=== PATIENT | male | born 1950 | race Two or more races ===

== ENCOUNTER → 2017-12-17 | Outpatient (CLI) | payer OTHER | END | disposition home or self-care (01) | LOC: RAD 501 09:36 | DX: J44.9 Chronic obstructive pulmonary disease, unspecified (principal) ==

== ENCOUNTER 2018-01-11 10:01 | Outpatient (CLI) | payer OTHER | END 2018-01-11 15:37 | disposition home or self-care (01) | LOC: TOM 10:01 | DX: R31.0 Gross hematuria (principal) ==

== ENCOUNTER 2018-04-06 07:54 | Outpatient (CLI) | payer OTHER | END 2018-04-06 08:01 | disposition home or self-care (01) | LOC: LAB 07:54 | DX: C64.1 Malignant neoplasm of right kidney, except renal pelvis (principal); E11.9 Type 2 diabetes mellitus without complications; D68.8 Other specified coagulation defects ==

== ENCOUNTER 2018-04-08 09:48 | Outpatient (CLI) | payer OTHER | END 2018-04-08 09:59 | disposition home or self-care (01) | LOC: RAD 09:48 | DX: J43.8 Other emphysema (principal) ==

== ENCOUNTER 2018-04-09 15:17 | Outpatient (CLI) | payer OTHER | END 2018-04-09 15:18 | disposition home or self-care (01) | LOC: T RESPIRAT 15:17 | DX: J43.1 Panlobular emphysema (principal) ==

== ENCOUNTER 2018-04-19 09:00 | Inpatient (IN) | payer OTHER ==
[~2018-04-19] VITALS: Ht 180.3 cm; Wt 97.5 kg
[2018-04-19] MEDS ORDERED: METROPOL PO (09:37)
[2018-04-19] MEDS ORDERED: FORTAMET1000 MG PO (09:37)
[2018-04-19] MEDS ORDERED: FENOFIBRATE160 MG PO (09:38)
[2018-04-19] MEDS ORDERED: ZOCOR PO (09:38)
[2018-04-19] MEDS ORDERED: COZAAR100 MG PO (09:38)
[2018-04-19] MEDS ORDERED: GLIMEPIRIDE PO (09:39)
[2018-04-19] MEDS ORDERED: QUETIAPINE FUM100 MG PO (09:39)
[2018-04-19] MEDS ORDERED: BENZTROPINE MESY2 MG PO (09:40)
[2018-04-19] MEDS ORDERED: HALOPERIDOL5 MG/1 ML IJ (09:40)
[2018-04-30] MEDS ORDERED: SIMVASTATIN10 MG PO (08:55)
[2018-04-30] MEDS ORDERED: TOPROL XL50 MG PO (09:03)
[2018-04-30] MEDS ORDERED: GLIMEPIRIDE4 MG PO (09:06)
== END 2018-05-01 09:51 | disposition home or self-care (01) | DRG 658 ==
LOC: SURH 04-29 05:50 → O/R 04-29 05:50 → SURH 04-29 13:10
PROVIDERS: Urology
PROC: 0GT34ZZ Resection of Right Adrenal Gland, Percutaneous Endoscopic Approach (ICD-10-PCS; 2018-04-29)
PROC: 0TT64ZZ Resection of Right Ureter, Percutaneous Endoscopic Approach (ICD-10-PCS; 2018-04-29)
PROC: 0TT04ZZ Resection of Right Kidney, Percutaneous Endoscopic Approach (ICD-10-PCS; principal; 2018-04-29 07:00)
DX: C64.1 Malignant neoplasm of right kidney, except renal pelvis (principal)

== ENCOUNTER 2018-05-03 17:13 | Emergency (ER) | payer OTHER ==
[~2018-05-03] VITALS: Ht 180.3 cm; Wt 97.5 kg
[~2018-05-03 17:13] MED LIST: BENZTROPINE MESY2 MG PO; COZAAR100 MG PO; FENOFIBRATE160 MG PO; FORTAMET1000 MG PO; GLIMEPIRIDE PO; GLIMEPIRIDE4 MG PO; HALOPERIDOL5 MG/1 ML IJ; METROPOL PO; QUETIAPINE FUM100 MG PO; SIMVASTATIN10 MG PO; TOPROL XL50 MG PO; ZOCOR PO
== END 2018-05-03 22:48 | disposition home or self-care (01) ==
LOC: ER 17:13
DX: E11.649 Type 2 diabetes mellitus with hypoglycemia without coma (principal)

== ENCOUNTER 2018-11-20 08:15 | Outpatient (CLI) | payer OTHER | END 2018-11-20 08:20 | disposition home or self-care (01) | LOC: LAB 08:15 | DX: R97.21 Rising PSA following treatment for malignant neoplasm of prostate (principal) ==

== ENCOUNTER 2018-11-22 09:19 | Outpatient (CLI) | payer OTHER | END 2018-11-22 09:28 | disposition home or self-care (01) | LOC: SONOGRAMA 09:19 | DX: R97.20 Elevated prostate specific antigen [PSA] (principal); C64.1 Malignant neoplasm of right kidney, except renal pelvis ==

== ENCOUNTER 2021-11-22 10:39 | Outpatient (CLI) | payer OTHER | END 2021-11-22 10:45 | disposition home or self-care (01) | LOC: RAD 10:39 | PROVIDERS: ATTEND General Practice | DX: J44.0 Chronic obstructive pulmonary disease with (acute) lower respiratory infection (principal) ==

== ENCOUNTER 2022-08-25 08:18 | Outpatient (CLI) | payer OTHER | END 2022-08-25 08:19 | disposition home or self-care (01) | LOC: SONOGRAMA 08:18 | PROVIDERS: ATTEND Urology | DX: R97.20 Elevated prostate specific antigen [PSA] (principal); C64.1 Malignant neoplasm of right kidney, except renal pelvis ==

== ENCOUNTER 2023-06-22 08:05 | Outpatient (CLI) | payer OTHER | END 2023-06-22 08:12 | disposition home or self-care (01) | LOC: TOM 08:05 | PROVIDERS: ATTEND Urology | DX: C64.1 Malignant neoplasm of right kidney, except renal pelvis (principal); R97.20 Elevated prostate specific antigen [PSA]; N39.0 Urinary tract infection, site not specified ==

== ENCOUNTER 2023-07-03 13:40 | Outpatient (CLI) | payer OTHER | END 2023-07-03 13:42 | disposition home or self-care (01) | LOC: LAB 13:40 | PROVIDERS: ATTEND Urology | DX: N39.0 Urinary tract infection, site not specified (principal); Z88.0 Allergy status to penicillin ==

== ENCOUNTER 2023-07-23 09:51 | Outpatient (CLI) | payer OTHER | END 2023-07-23 09:57 | disposition home or self-care (01) | LOC: RAD 09:51 | PROVIDERS: ATTEND Urology | DX: R33.9 Retention of urine, unspecified (principal); N18.9 Chronic kidney disease, unspecified ==

== ENCOUNTER 2023-07-26 09:39 | Outpatient (CLI) | payer OTHER | END 2023-07-26 09:40 | disposition home or self-care (01) | LOC: EKG 09:39 | PROVIDERS: ATTEND Urology | DX: Z01.810 Encounter for preprocedural cardiovascular examination (principal) ==

== ENCOUNTER 2023-08-08 06:21 | Day surgery (SDC) | payer OTHER ==
[~2023-08-08 06:21] MED LIST changes: +COZAAR50 MG PO; +FINASTERIDE5 MG PO; +LUMIGAN2.5 M1 OP; +SIMVASTA PO; +TAMS0.4C PO
== END 2023-08-08 16:45 | disposition home or self-care (01) ==
LOC: CIR.AMB 06:21
PROVIDERS: ATTEND Urology
DX: N40.0 Benign prostatic hyperplasia without lower urinary tract symptoms (principal); R33.9 Retention of urine, unspecified; R97.20 Elevated prostate specific antigen [PSA]; N39.0 Urinary tract infection, site not specified; Z88.0 Allergy status to penicillin; Z20.822 Contact with and (suspected) exposure to COVID-19

== ENCOUNTER 2023-08-10 06:43 | Emergency (ER) | payer OTHER ==
[~2023-08-10] VITALS: Ht 180.3 cm; Wt 72.6 kg
== END 2023-08-10 10:36 | disposition home or self-care (01) ==
LOC: ER 06:43
DX: R31.9 Hematuria, unspecified (principal); Z48.816 Encounter for surgical aftercare following surgery on the genitourinary system; Z88.0 Allergy status to penicillin
CPT/HCPCS: 36415; 96365; 99282; J0744

== ENCOUNTER 2023-08-13 06:43 | Outpatient (CLI) | payer OTHER ==
[2023-08-13 07:21] LABS: MEAN CELL VOLUME 84.7 fL (80.0-100.00); MEAN CORPUSCULAR HGB CONC 35.2 g/dl (32.0-36.0); PLATELET COUNT 132 K/uL (150-450); RED BLOOD COUNT 2.54 M/uL (4.00-6.00); RED CELL DISTRIBUTION WIDTH 14.3 % (11.5-14.5)
[2023-08-13 07:37] LABS: CALCIUM 8.9 mg/dL (8.5-10.1); CREATININE SERUM 2.6 mg/dL (0.70-1.30); GFR 24.32; POTASSIUM 4.33 mEq/L (3.5-5.1)
[2023-08-13 07:59] LABS: MEAN CORPUSCULAR HEMOGLOBIN 29.9 pg (27.00-32.0)
[2023-08-13 08:00] LABS: HEMATOCRIT 21.5 % (39.0-48.0); HEMOGLOBIN 7.6 g/dL (13-16.00)
[2023-08-13] MEDS ORDERED: HALOPERIDOL5 MG PO (10:07)
== END 2023-08-13 06:45 | disposition home or self-care (01) ==
LOC: LAB 06:43
PROVIDERS: ATTEND Urology
DX: D62 Acute posthemorrhagic anemia (principal)

== ENCOUNTER 2023-08-13 09:34 | Inpatient (IN) | payer OTHER ==
[~2023-08-13] VITALS: Ht 180.3 cm; Wt 72.6 kg
[2023-08-13] MEDS ORDERED: HALOPERIDOL5 MG PO (10:07)
[2023-08-13 11:09] LABS: MEAN CORPUSCULAR HGB CONC 33.4 g/dl (32.0-36.0); PLATELET COUNT 130 K/uL (150-450); RED BLOOD COUNT 2.45 M/uL (4.00-6.00); RED CELL DISTRIBUTION WIDTH 13.8 % (11.5-14.5)
[2023-08-13 11:20] LABS: HEMATOCRIT 21.3 % (39.0-48.0); HEMOGLOBIN 7.1 g/dL (13-16.00); MEAN CORPUSCULAR HEMOGLOBIN 28.9 pg (27.00-32.0)
[2023-08-13 11:43] LABS: INR 1.03; PARTIAL THROMBOPLASTIN TIME 24.1 SECONDS (22.0-34.0); PROTHROMBIN TIME 10.8 SECONDS (9.0-11.5)
[2023-08-13 11:47] LABS: CALCIUM 8.7 mg/dL (8.5-10.1); CREATININE SERUM 2.57 mg/dL (0.70-1.30); GFR 24.64; POTASSIUM 4.93 mEq/L (3.5-5.1)
[2023-08-13 13:43] LABS: PH,URINE 5.5 (5.0-8.0); URINE APPEARANCE Cloudy; URINE BILIRRUBIN Negative (NEGATIVE); URINE BLOOD Large; URINE COLOR Orange; URINE GLUCOSE Negative (NEGATIVE); URINE LEUKOCYTE Moderate; URINE NITRATE Negative; URINE UROBILINOGEN 0.2 E.U./dl
[2023-08-13 13:46] LABS: URINE BACTERIA 248.2 uL (0.0-1933); URINE EPITHELIAL CELLS 7.1 uL (0.0-38.8); URINE RBC 159.9 uL (0.0-20.8); URINE WBC 63.9 uL (0.0-23.2)
[2023-08-13 13:54] LABS: URINE PROTEIN 100 (NEGATIVE)
[2023-08-14 11:23] LABS: HEMATOCRIT 25.3 % (39.0-48.0); MEAN CELL VOLUME 85.9 fL (80.0-100.00); MEAN CORPUSCULAR HGB CONC 35.3 g/dl (32.0-36.0); RED BLOOD COUNT 2.95 M/uL (4.00-6.00)
[2023-08-14 11:25] LABS: MEAN CORPUSCULAR HEMOGLOBIN 30.5 pg (27.00-32.0)
[2023-08-14 11:30] LABS: PLATELET COUNT 113 K/uL (150-450)
[2023-08-15] MEDS ORDERED: FINASTERIDE5 MG PO (06:30)
== END 2023-08-15 11:36 | disposition home or self-care (01) | DRG 812 ==
LOC: ER 09:34 → SEC-K 13:34 → O/R 13:51 → SEC-K 13:52 → MEDJ 14:47
PROVIDERS: Emergency Medicine; ADMIT Internal Medicine; ATTEND Internal Medicine
PROC: 30233N1 Transfusion of Nonautologous Red Blood Cells into Peripheral Vein, Percutaneous Approach (ICD-10-PCS; principal; 2023-08-13)
DX: D64.9 Anemia, unspecified (principal); I10 Essential (primary) hypertension; E11.8 Type 2 diabetes mellitus with unspecified complications; Z79.4 Long term (current) use of insulin; Z90.79 Acquired absence of other genital organ(s)

== ENCOUNTER → 2023-11-22 06:56 | Outpatient (CLI) | payer OTHER ==
[~2023-11-22 06:56] MED LIST changes: +HALOPERIDOL5 MG PO
[2023-11-22 07:49] LABS: URINE APPEARANCE Clear; URINE BILIRRUBIN Negative (NEGATIVE); URINE BLOOD Negative; URINE COLOR Yellow; URINE GLUCOSE Negative (NEGATIVE); URINE LEUKOCYTE Small; URINE NITRATE Negative; URINE PROTEIN Negative (NEGATIVE); URINE UROBILINOGEN 0.2 E.U./dl
[2023-11-22 07:50] LABS: URINE BACTERIA 119.5 uL (0.0-1933); URINE EPITHELIAL CELLS 2.7 uL (0.0-38.8); URINE WBC 111.2 uL (0.0-23.2)
[2023-11-22 07:51] LABS: HEMATOCRIT 30.8 % (39.0-48.0); HEMOGLOBIN 10.4 g/dL (13-16.00); MEAN CELL VOLUME 86.9 fL (80.0-100.00); MEAN CORPUSCULAR HEMOGLOBIN 29.3 pg (27.00-32.0); MEAN CORPUSCULAR HGB CONC 33.8 g/dl (32.0-36.0); RED BLOOD COUNT 3.55 M/uL (4.00-6.00); RED CELL DISTRIBUTION WIDTH 14.1 % (11.5-14.5)
[2023-11-22 07:55] LABS: PLATELET COUNT 104 K/uL (150-450)
[2023-11-22 07:56] LABS: URINE RBC 1.2 uL (0.0-20.8)
[2023-11-22 08:21] LABS: ALBUMIN 3.5 gm/dL (3.4-5.0); BILIRUBIN TOTAL 0.25 mg/dL (0.3-1.2); CALCIUM 8.3 mg/dL (8.5-10.1); CHOL HDL RATIO 3.3 (0-5.0); CREATININE SERUM 2.34 mg/dL (0.70-1.30); GFR 27.46; POTASSIUM 5.12 mEq/L (3.5-5.1); PROSTATIC SPECIFIC ANTIGEN 0.557 NG/ML (0.010-4.00); TOTAL PROTEIN 6.5 gm/dL (6.4-8.2); TSH 2.06 uIU/mL (0.358-3.74)
[2023-11-22 12:15] LABS: VITAMIN D3 25 HYDROXY 44.25 ng/ml (30-120)
== END | disposition home or self-care (01) ==
LOC: LAB 06:56
PROVIDERS: ATTEND General Practice
DX: Z12.11 Encounter for screening for malignant neoplasm of colon (principal); E11.65 Type 2 diabetes mellitus with hyperglycemia; E78.9 Disorder of lipoprotein metabolism, unspecified; N40.0 Benign prostatic hyperplasia without lower urinary tract symptoms; I12.9 Hypertensive chronic kidney disease with stage 1 through stage 4 chronic kidney disease, or unspecified chronic kidney disease; E78.1 Pure hyperglyceridemia